=== PATIENT | female | born 1945 | race Caucasian/White ===

== ENCOUNTER 2023-03-16 09:39 | Outpatient (OUT) | payer MEDICARE, BC, SELFPAY ==
--- NOTE | 2023-03-16 09:41 | VEIN_ITS ---
Patient: MARIE AGUILAR Exam Date: 03/16/2023 : 1945 Gender:F Ordering : DR LISSETT ISAACS M.D. Admission #: [id number] Family : Order #: [id number] CLICK HERE TO VIEW EXAM RADIOLOGY REPORT PROCEDURE: VC EXT VENOUS REFLUX DORON LMTD COMPARISON: None. INDICATIONS: I83.813 Pain due to varicose veins of bilateral legs TECHNIQUE: Duplex imaging of the lower extremity to assess the deep and superficial venous system for the presence of deep or superficial venous incompetence and to document the location and severity of disease. The study includes evaluation of the great saphenous vein (GSV), anterior accessory saphenous vein (AASV) and small saphenous vein (SSV). Patient scanned in reverse Trendelenburg and standing. FINDINGS: RIGHT LOWER EXTREMITY: Saphenofemoral Junction Reflux: Yes 6.8mm 2.5 sec GSV: Diam (mm) Reflux/ Time (sec) Proximal Thigh 5.8 Yes 2.6 Mid Thigh 4.6 Yes 1.5 Distal Thigh 5.3 Yes 1.3 Prox Calf 4.7 Yes 0.9 Mid Calf 4.2 No Saphenopopliteal Junction Reflux: 1.7mm No SSV: Proximal Calf 1.7 No Mid Calf 2.4 No AASV: Not present Proximal Thigh Mid Thigh Distal Thigh Thrombi: No acute or chronic thrombus visualized Compressibility: Normal Flow: Normal Preforator: Dist/med calf 3.0mm with 0s reflux. Mid/med calf 2.4mm with 0s reflux. Tech Note: Incompetent SFJ and GSV. Patent varicos vein prox/med calf 8.1mm with 1.4s reflux. Patent varicose vein med knee 1.0s reflux. Patent varicose vein mid/med calf 4.3mm with 2.7s reflux. LEFT LOWER EXTREMITY: Saphenofemoral Junction Reflux: Yes 6.6 mm 2.5 sec GSV: Diam (mm) Reflux/Time (sec) Proximal Thigh 6.7 Yes 2.4 Mid Thigh 4.1 Yes 2.8 Distal Thigh 4.7 No Prox Calf 3.0 No Mid Calf 2.4 Yes 1.0 Saphenopopliteal Junction Relux: 1.0 mm N/A SSV: Proximal Calf 1.2 N/A Mid Calf 1.3 AASV: Proximal Thigh 2.4 No Mid Thigh 1.9 No Distal Thigh Thrombi: No acute or chronic thrombus visualized Compressibility: Normal Flow: Normal Salvage Engineering Technician: Dist/med calf 2.2mm with 0s reflux. Tech Note: Incompetent SFJ and GSV. Patent varicose vein med knee 2.9mm with 0.9s reflux. CONCLUSION: 1. Dilated, incompetent great saphenous vein bilaterally. 2. Dilated, incompetent branch saphenous varicosities within right leg arising from the right great saphenous vein. Dictated by: Papi Landa M.D. on 03/16/2023 at 10:49 Approved by: Papi Landa M.D. on 03/16/2023 at 10:53
--- NOTE | 2023-03-16 09:41 | VEIN_ITS ---
Patient: MARIE AGUILAR Exam Date: 03/16/2023 : 1945 Gender:F Ordering : DR LISSETT ISAACS M.D. Admission #: [id number] Family : Order #: [id number] CLICK HERE TO VIEW EXAM RADIOLOGY REPORT PROCEDURE: [facility] FACILITY EST COMPREHENSIVE VEIN CENTER - OFFICE VISIT INITIAL COMPARISON: None. PROGRESS NOTES: [age] year old female who presents with a 20 year history of bulging dilated veins, discolored veins, leg pain, swelling. The patient's right leg symptoms are worse than the left. There has been a progression of symptoms recently. This increases with prolonged dependency. The patient describes an improvement with rest, elevation, exercise, support stockings, and Tylenol. The patient denies any signs and symptoms to suggest arterial ischemia. The patient describes a family history of varicose veins on maternal side. The patient has drinking and smoking history of : Occasional alcohol consumption; former smoker (quit 3 years ago). Patient has a past medical history significant for hypercholesterolemia. The patient denies a history of deep venous thrombus or pulmonary embolus. See separate history and physical for medication list. No prior treatment for varicose or spider veins. Current use of compression stockings which provided some relief. After review of nurse notes, history and physical exam I discussed at length the pathophysiology of venous hypertension and possible treatments, therapies and strategies available. We discussed at length the importance of elevating the lower extremities above the level of the heart, increased physical activity and compression stocking use. Ultrasound venous reflux study performed today was discussed at length with the patient. The report demonstrates dilated incompetent great saphenous veins bilaterally and multiple dilated-incompetent branch saphenous varicosities within right leg arising from the great saphenous vein. PHYSICAL EXAM: The right leg demonstrates multiple prominent varicosities predominately involving the ankle and foot, scattered spider veins, no ulceration, mild edema, no skin discoloration. The left leg demonstrates a few small varicosities, a few scattered spider veins, no ulceration, no edema, no skin discoloration. Both thighs, legs and feet were symmetrically warm to the touch. Good posterior tibial and dorsalis pedis pulses were present bilaterally. VEIN/VC Facility EST Comprehensive IMPRESSION: 1. Bilateral lower extremity venous insufficiency, right greater than left. 2. Bilateral lower extremity varicose veins 3. Mild right lower extremity subcutaneous edema 4. No flow significant arterial disease 5. CEAP: C3, EC, , MS PLAN: 1. Continued use of compression stockings 2. Elevated legs and increased physical activity symptomatic relief 3. Endovenous laser ablation of right great saphenous vein. 4. Microfoam chemical ablation of right leg incompetent branch saphenous varicosities. 5. Right lower extremity sclerotherapy. Nurse notes, history and physical were reviewed and confirmed, see attached forms. The nurse was present throughout the physical exam and consultation Dictated by: Papi Landa M.D. on 03/16/2023 at 11:01 Approved by: Papi Landa M.D. on 03/16/2023 at 11:35
== END 2023-03-16 09:40 | disposition home or self-care (01) ==
PROVIDERS: PCP Radiology Diagnostic Radiology; Visit Provider Radiology Diagnostic Radiology
DX: I83.813 Varicose veins of bilateral lower extremities with pain (principal)
CPT/HCPCS: 93970; G0463

== ENCOUNTER 2023-03-30 08:51 | Outpatient (OUT) | payer MEDICARE, BC, SELFPAY ==
--- NOTE | 2023-03-30 | VEIN_ITS ---
[address] [address] Patient Name: MARIE AGUILAR MRN: [id number] date: 1945 Sex: F Assigned Patient Location: Current Patient Location: Accession/Order Number: [id number] Exam Date: 03/30/2023 09:00 Report Date: 03/30/2023 10:23 At the request of: LISSETT ISAACS Procedure: VC Endovenous Ablation 1VeinRT EXAMINATION: VC Endovenous Ablation 1VeinRT HISTORY: Pain due to varicose veins of bilateral legs I83.813 The risks and benefits of the procedure had been previously discussed, and were rediscussed at length. Informed written consent was obtained. Shaheen Knowles RN and Sanjuana Cronin RDMS, RVT assisted. Time out procedure was performed. The right lower extremity was prepared and draped in the usual sterile fashion to allow knee flexion in the sterile field. Duplex ultrasound probe was draped in a sterile cover, sterile transmission gel was used. Venous mapping was performed with the areas of dilation and large tributaries marked. The total length was 38 cm from the entry at proximal calf to 3 cm below the Saphenofemoral junction. The diameter of the great saphenous vein ranged from 5.8 mm. A 30 gauge needle and 1% buffered lidocaine was used to anesthetize the entry site. A 4 mm incision was made with a scalpel and the saphenous vein was entered percutaneously under direct ultrasound guidance with a micropuncture set, a single stick was successful in gaining access. A micro-guide wire was inserted and the needle removed. A micro-set including a dilator was inserted over the microwire and the needle and dilator were removed. A guide wire was inserted through the micro-set and guided through the saphenous vein to the saphenofemoral junction. The dilator was removed and an introducer sheath was inserted over the wire until the end of the sheath entered the saphenofemoral junction. The dilator and wire were removed and the 600 micron fiber was introduced and placed and positioned so that it extended beyond the sheath and was 3 cm distal to the saphenofemoral or saphenopopliteal junction. Final position of the fiber was determined by ultrasound guidance and duplex imaging. Tumescent anesthetic was delivered by ultrasound guidance. 175 cc of fluid was delivered along the entire course of the saphenous vein. The solution consisted of 1000 cc of normal saline with 40 mL of 1% lidocaine and 20 mL of sodium bicarbonate. A final positioning check was made. The energy source was turned on by means of the foot pedal and the fiber and sheath were withdrawn. The total number of Joules delivered was 1996. The laser was active for [250 seconds under continuous pulse, average laser use of 8 J. Laser start time 10:14 AM, 03/30/2023. Laser stop time 10:19 AM, 03/30/2023. A duplex ultrasound revealed compressibility and flow at the saphenofemoral junction immediately after the procedure. Hemostasis at the access site was achieved. The skin incision of the saphenous vein was closed with a 4 x 4. A compression stocking was applied. Postop instructions were given. A follow up appointment was recommended and scheduled. The patient tolerated the procedure well. Electronically authenticated by: AUGUST PATEL Date: 03/30/2023 10:23
[2023-03-30] MEDS: 0.9 % SODIUM CHLORIDE 500 ML, LIDOCAINE HCL 20 ML, SODIUM BICARBONATE 10 MEQ INJ (09:03)
== END 2023-03-30 08:52 | disposition home or self-care (01) ==
LOC: VC 08:51
PROVIDERS: PCP Radiology Diagnostic Radiology; Visit Provider Radiology Diagnostic Radiology
DX: I83.813 Varicose veins of bilateral lower extremities with pain (principal)
CPT/HCPCS: 36478

== ENCOUNTER 2023-04-06 09:12 | Outpatient (OUT) | payer MEDICARE, BC, SELFPAY ==
--- NOTE | 2023-04-06 09:18 | VEIN_ITS ---
Patient: MARIE AGUILAR Exam Date: 04/06/2023 : 1945 Gender:F Ordering : DR LISSETT ISAACS M.D. Admission #: [id number] Family : Order #: [id number] CLICK HERE TO VIEW EXAM RADIOLOGY REPORT PROCEDURE: VC EXT VENOUS RT LMTD COMPARISON: None. INDICATIONS: Pain due to varicose veins of bilateral legs I83.813 TECHNIQUE: Lower extremity gilman scale and Duplex Doppler evaluation of the deep venous system from the inguinal ligament through the calf veins. FINDINGS: REGION: Right lower extremity. THROMBI: Negative for DVT. Heat induced thrombus visualized 3.6cm from the SFJ. The heat induced thrombus extends from groin to distal thigh. COMPRESSIBILITY: Choose one. FLOW: Choose one. OTHER: CONCLUSION: 1. Successful post ablation occlusion of right great saphenous vein. Dictated by: Ppai Landa M.D. on 04/06/2023 at 14:00 Approved by: Papi Landa M.D. on 04/06/2023 at 14:02
--- NOTE | 2023-04-06 09:18 | VEIN_ITS ---
Patient: MARIE AGUILAR Exam Date: 04/06/2023 : 1945 Gender:F Ordering : DR LISSETT ISAACS M.D. Admission #: [id number] Family : Order #: [id number] CLICK HERE TO VIEW EXAM RADIOLOGY REPORT PROCEDURE: VC FACILITY EST LMTD VEIN CENTER - OFFICE VISIT FOLLOW UP COMPARISON: None. PROGRESS NOTES: The patient reports improvement in leg symptoms. There has been interval reduction in varicosities. The patient has followed our recommendations to walk 20-30 minutes once or twice per day since the procedure. Physical exam demonstrates decrease in varicosities of the leg. Persistent superficial varicosities are identified along the right leg. Review of the ultrasound performed the same day demonstrates occlusive thrombus extending throughout the treated vein(s), see separate report, consistent with a successful ablation. No thrombus extending into or beyond the saphenofemoral junction. The patient expressed a desire to proceed with treatment of superficial varicosities. The patient was informed that treatment was a process and would require several procedures/sessions. VEIN/VC Facility EST LMTD IMPRESSION: 1. Successful ablation of the right great saphenous vein(s). 2. Persistent superficial varicose veins and spider veins and improving lower extremity symptoms. PLAN: 1. Microfoam chemical ablation of incompetent branch saphenous varicosities. 2. Sclerotherapy. Nurse notes, history and physical were reviewed and confirmed, see attached forms. The nurse was present throughout the physical exam and consultation Dictated by: Papi Landa M.D. on 04/06/2023 at 14:02 Approved by: Papi Landa M.D. on 04/06/2023 at 14:04
== END 2023-04-06 09:13 | disposition home or self-care (01) ==
LOC: VC 09:12
PROVIDERS: PCP Radiology Diagnostic Radiology; Visit Provider Radiology Diagnostic Radiology
DX: I80.01 Phlebitis and thrombophlebitis of superficial vessels of right lower extremity (principal)
CPT/HCPCS: 93971; G0463

== ENCOUNTER 2023-04-18 12:41 | Outpatient (OUT) | payer MEDICARE, BC, SELFPAY ==
--- NOTE | 2023-04-18 12:44 | VEIN_ITS ---
The [address] [address] Patient Name: MAREI AGUILAR MRN: [id number] date: 1945 Sex: F Assigned Patient Location: Current Patient Location: Accession/Order Number: [id number] Exam Date: 04/18/2023 13:00 Report Date: 04/18/2023 14:21 At the request of: LISSETT ISAACS Procedure: VC INJ Foam Sclerosant WUS SUPERVISOR HISTOLOGY PROCEDURE: VC INJ Foam Sclerosant WUS SUPERVISOR HISTOLOGY COMPARISON: None. HISTORY: Pain due to varicose veins of bilateral legs I83.813 Pre-operative Diagnosis: CEAP class C3 venous insufficiency with pain, tenderness, edema and incompetent right great saphenous and varicose vein(s), chronic venous insufficiency leg secondary to venous incompetence Post-operative Diagnosis: CEAP class C3 venous insufficiency with pain, tenderness, edema and incompetent right great saphenous and varicose vein(s), chronic venous insufficiency leg secondary to venous incompetence Procedure Performed: 1. Ultrasound-guided microfoam chemical ablation with Varithenaregistered 2. Intraoperative ultrasound guidance Anesthesia: None Indications for Procedure: 77-year-old female presents with the trainee history lower extremity pain and swelling in varicose veins. The patient failed conservative medical therapy including medical compression stockings, exercise and analgesics. Prior procedures include endovenous laser ablation. Multiple incompetent varicosities of the right leg. Duplex scan showed reflux and enlarged diameters up to 6 mm. The patient underwent informed consent including management options where the complications of infection, bleeding, pain, and skin injury were discussed. Particular attention was spent discussing thrombus extension and deep vein thrombosis as well as the possibility of pulmonary embolus and treatment with oral or injectable blood thinners. Procedure: The patient walked to the procedure room. All applicable staff donned appropriate apparel. A procedure timeout was performed to confirm correct patient, correct extremity, correct procedure, and correct room set-up including presence of all applicable supplies, devices, and drugs. A duplex ultrasound, performed by myself confirmed the location and incompetence of branch saphenous varicosities and their course was marked on the skin together with the dilated tributaries. The extent of treatment of the vein and the associated varicosities was determined through ultrasound mapping. The skin was prepped and then punctured with a butterfly needle and advanced under ultrasound guidance. The Varithenaregistered canister was activated and the canister was primed and purged as required in the instructions for use. Varithenaregistered was drawn into a sterile syringe. 7 cc injected into dilated incompetent distal right great saphenous vein with flow up to the level of the knee. The proximal portion was previously] endovenous laser ablation 5 cc injected into a 5 mm varicose vein medial mid right lower leg 3 cc injected into a 6 mm varicose vein lateral proximal right lower leg Varithenaregistered was slowly administered at 0.5-1.0 cc/second with close observation by ultrasound of its course in the vessels. Total volume utilized was: 15 cc. Following administration of Varithenaregistered the leg was elevated and the patient was asked to repeatedly dorsiflex the ankle to limit flow of Varithenaregistered into perforating veins. Once appropriate spasm had been confirmed in the treated veins, the vascular catheter was removed from the leg and light pressure was applied over the puncture site for hemostasis. The common femoral and deep superficial veins were then evaluated for flow and compressibility prior to dressing placement. The lower extremity was kept elevated at 45 degrees above the horizontal and cording material was applied over the saphenous segments and tributaries to allow for eccentric compression over the target vessels including the targeted saphenous vein(s). A multilayer dressing was applied consisting of foam pads, coban and thigh-high 20-30 mm Hg compression elastic support hose were placed on the patient. The leg was lowered only after compression had been applied and the patient was immediately ambulatory. The patient ambulated 10 minutes under supervision and was without apparent concerns at time of release. Post-care instructions include advising patient to keep post-treatment bandages in place and dry for 48 hours, avoid extended periods of inactivity, avoid heavy exercise for one week, wear compression stockings on the treated leg continuously for two weeks, to walk daily for 10 minutes over the next month. The patient was instructed to take an anti-inflammatory medicine as needed and to follow up for color duplex scan of the Saphenous veins, the treated branch saphenous varicosities, the adjacent deep veins, and additional treatment within 7 days. PERSONNEL: Debbie Ernandez Electronically authenticated by: LISSETT ISAACS Date: 04/18/2023 14:21
== END 2023-04-18 12:42 | disposition home or self-care (01) ==
LOC: VC 12:41
PROVIDERS: PCP Radiology Diagnostic Radiology; Visit Provider Radiology Diagnostic Radiology
DX: I83.813 Varicose veins of bilateral lower extremities with pain (principal)
CPT/HCPCS: 36466

== ENCOUNTER 2023-04-28 10:34 | Outpatient (OUT) | payer MEDICARE, BC, SELFPAY ==
--- NOTE | 2023-04-28 10:37 | VEIN_ITS ---
Patient: MARIE AGUILAR Exam Date: 04/28/2023 : 1945 Gender:F Ordering : DR LISSETT ISAACS M.D. Admission #: [id number] Family : Order #: [id number] CLICK HERE TO VIEW EXAM RADIOLOGY REPORT PROCEDURE: VC EXT VENOUS RT LMTD COMPARISON: VC EXT VENOUS RT LMTD, 04/06/2023. INDICATIONS: I80.01 Phlebitis of superficial veins of rt lower extremity TECHNIQUE: Lower extremity gilman scale and Duplex Doppler evaluation of the deep venous system from the inguinal ligament through the calf veins. FINDINGS: REGION: Right lower extremity. THROMBI: Negative for DVT. Varithena induced thrombus visualized at distal/med calf, prox/lat calf, and mid/lat calf. COMPRESSIBILITY: Non-compressible segments. FLOW: Areas of no flow. OTHER: Varicose vein visualized at mid/medial thigh that measures 4.0mm with 0.7s reflux. CONCLUSION: 1. Successful post ablation occlusion of treated left leg branch saphenous varicosities. Dictated by: Papi Landa M.D. on 04/28/2023 at 11:57 Approved by: Papi Landa M.D. on 04/28/2023 at 11:57
--- NOTE | 2023-04-28 10:37 | VEIN_ITS ---
Patient: MARIE AGUILAR Exam Date: 04/28/2023 : 1945 Gender:F Ordering : DR LISSETT ISAACS M.D. Admission #: [id number] Family : Order #: [id number] CLICK HERE TO VIEW EXAM RADIOLOGY REPORT PROCEDURE: [facility] EST LMTD VEIN CENTER - OFFICE VISIT FOLLOW UP COMPARISON: [facility] EST TD, 04/06/2023. PROGRESS NOTES: The patient reports improvement in leg symptoms. There has been interval reduction in varicosities. The patient has followed our recommendations to walk 20-30 minutes once or twice per day since the procedure. Physical exam demonstrates decrease in varicosities of the leg. No remaining/treatable varicosities identified along the legs bilaterally. Review of the ultrasound performed the same day demonstrates occlusive thrombus extending throughout the treated vein(s), see separate report, consistent with a successful ablation. No thrombus extending into or beyond the saphenofemoral junction. No additional treatment needed at this time. VEIN/[facility] EST LMTD IMPRESSION: 1. Successful ablation of the treated left lower extremity branch saphenous varicosities saphenous. PLAN: Follow-up as needed. Nurse notes, history and physical were reviewed and confirmed, see attached forms. The nurse was present throughout the physical exam and consultation Dictated by: Papi Landa M.D. on 04/28/2023 at 11:57 Approved by: Papi Landa M.D. on 04/28/2023 at 11:59
== END 2023-04-28 10:35 | disposition home or self-care (01) ==
LOC: VC 10:34
PROVIDERS: PCP Radiology Diagnostic Radiology; Visit Provider Radiology Diagnostic Radiology
DX: I80.01 Phlebitis and thrombophlebitis of superficial vessels of right lower extremity (principal)
CPT/HCPCS: 93971; G0463